=== PATIENT | male | born 1950 | race Hispanic/Latino ===

== ENCOUNTER → 2017-08-26 | Outpatient (CLI) | payer MEDICARE | END | disposition home or self-care (01) | LOC: RAH 13:12 | PROVIDERS: ATTEND Family Medicine | DX: S83.91XA Sprain of unspecified site of right knee, initial encounter (principal); M25.461 Effusion, right knee; X58.XXXA Exposure to other specified factors, initial encounter; Y93.89 Activity, other specified; Y92.89 Other specified places as the place of occurrence of the external cause; Y99.8 Other external cause status | CPT/HCPCS: 73721 ==

== ENCOUNTER 2019-10-03 14:31 | Inpatient (IN) | payer MEDICARE ==
[~2019-10-03] VITALS: Ht 157.5 cm; Wt 79.3 kg
[2019-10-03] MEDS ORDERED: ACETAMINOPHEN 325 MG TAB ONE (14:38)
[2019-10-03 15:16] LABS: BASOPHILS % (AUTO) 0.1 % (0.0-5.0); LYMPHOCYTES % (AUTO) 6.4 % (21.0-51.0); MEAN CORPUSCULAR HEMOGLOBIN 29.7 pg (27.0-33.0); MEAN CORPUSCULAR HGB CONC 33.8 g/dL (32.0-36.0); MEAN CORPUSCULAR VOLUME 87.9 fL (79-99); MONOCYTES % (AUTO) 8.6 % (3.0-13.0); NEUTROPHILS % (AUTO) 84.4 % (40.0-77.0); PLATELET COUNT (AUTO) 106 K/uL (130-400); RED CELL DISTRIBUTION WIDTH 14.6 % (11.0-15.5); WHITE BLOOD COUNT (AUTO) 21.2 K/uL (4.8-10.8)
[2019-10-03 15:43] LABS: ALBUMIN 3.2 g/dL (3.5-5.0); BILIRUBIN,TOTAL 2.2 mg/dL (0.2-1.0); CREATININE 4.2 mg/dL (0.5-1.5); TOTAL PROTEIN, SERUM 6.9 g/dL (6.0-8.3)
[2019-10-03] MEDS ORDERED: ONDANSETRON HCL 4 MG/2 ML VIAL ONE (15:53)
[2019-10-03] MEDS ORDERED: ZOSYN 3.375GM+NS 50ML 50 ML IV ONE (16:16)
[2019-10-03] MEDS ORDERED: MORPHINE SULFATE 4 MG/1ML SYG ONE (17:55)
[2019-10-03] MEDS ORDERED: SODIUM CHLORIDE 0.9% 1000ML 1,000 ML IV SCH (19:11)
[2019-10-03] MEDS ORDERED: MEPERIDINE-PF 25 MG/ML SYG IV PRN (19:15)
[2019-10-03] MEDS ORDERED: ACETAMINOPHEN 325 MG TAB PO PRN ×2 (19:15)
[2019-10-03] MEDS ORDERED: MEPERIDINE-PF 50 MG/ML SYG IVP PRN (19:30)
[2019-10-03] MEDS ORDERED: MEPERIDINE-PF 25 MG/ML SYG IVP PRN (19:45)
[2019-10-03] MEDS ORDERED: PHARMACY COMMUNICATION MISC SCH (20:00)
[2019-10-03] MEDS ORDERED: METRONIDAZOLE 500 MG TABLET PO SCH (21:00)
[2019-10-03] MEDS: INSULIN HUMULIN R 100 UNIT/ML 3ML SQ SCH (21:00)
[2019-10-03] MEDS ORDERED: FAMOTIDINE/PF 20 MG/2 ML VIAL IV ONE (21:39)
[2019-10-03 22:52] VITALS: BP 159/79
[2019-10-04] MEDS: LACTATED RINGERS 1000ML 1,000 ML IV SCH ×4 (00:41→19:42)
[2019-10-04 04:01] LABS: BASOPHILS % (AUTO) 0.2 % (0.0-5.0); HEMATOCRIT 24.7 % (42-54); LYMPHOCYTES % (AUTO) 4.9 % (21.0-51.0); MEAN CORPUSCULAR HEMOGLOBIN 29.3 pg (27.0-33.0); MEAN CORPUSCULAR HGB CONC 33.2 g/dL (32.0-36.0); MEAN CORPUSCULAR VOLUME 88.2 fL (79-99); MONOCYTES % (AUTO) 9.4 % (3.0-13.0); NEUTROPHILS % (AUTO) 84.7 % (40.0-77.0); PLATELET COUNT (AUTO) 74 K/uL (130-400); RED CELL DISTRIBUTION WIDTH 14.4 % (11.0-15.5); WHITE BLOOD COUNT (AUTO) 19.4 K/uL (4.8-10.8)
[2019-10-04 04:17] LABS: ALBUMIN 2.4 g/dL (3.5-5.0); BILIRUBIN,TOTAL 2.8 mg/dL (0.2-1.0); CREATININE 5.1 mg/dL (0.5-1.5); POTASSIUM 4.5 mmol/L (3.5-5.1); TOTAL PROTEIN, SERUM 5.4 g/dL (6.0-8.3)
[2019-10-04] MEDS: ZOSYN 3.375GM+NS 50ML 50 ML IV SCH ×2 (04:22→15:27)
[2019-10-04 04:40] VITALS: BP 152/66
[2019-10-04] MEDS: INSULIN HUMULIN R 100 UNIT/ML 3ML SQ SCH ×4 (06:14→21:00)
[2019-10-04 07:54] VITALS: BP 151/66
[2019-10-04] MEDS: FAMOTIDINE/PF 20 MG/2 ML VIAL IV SCH (08:36)
--- NOTE | 2019-10-04 10:00 | NUR ---
DR. ISLAS IS MAKING HIS ROUNDS. PENDING MRCP RESULTS. MD ORDERED FOR CLEAR LIQUID DIET TO BE STARTED. IF POSITIVE MRCP, MD PLANS FOR SURGERY ON SATURDAY.
--- NOTE | 2019-10-04 10:55 | NUR ---
cm note spoke with patient and states resides at home with spouse, uses cane for ambulation and has provider to assist with adls, has provider 3hrs daily, and she transports to md as needed. dc [place]. states no dc needs. Addendum: 10/04/19 at 1101 by MARTHA GRAMAJO CM Amended: Links added.
--- NOTE | 2019-10-04 11:00 | NUR ---
DR. OCAMPO IS IN TO SEE PATIENT. CONTINUE IVF. D/C DEMEROL.
[2019-10-04 11:25] VITALS: BP 153/69
[2019-10-04 11:42] LABS: APPEARANCE,URINE TURBID (CLEAR); BILIRUBIN,URINE SMALL (NEGATIVE); COLOR,URINE YELLOW (YELLOW); GLUCOSE, URINE (UA) 250 mg/dL (NEGATIVE); KETONES,URINE NEGATIVE (NEGATIVE); LEUKOCYTE ESTERASE ,URINE SMALL (NEGATIVE); NITRATE,URINE NEGATIVE (NEGATIVE); OCCULT BLOOD,URINE MODERATE (NEGATIVE); PROTEIN,URINE >=300 mg/dL (NEGATIVE)
[2019-10-04 11:43] LABS: RBC,URINE 0-1 /HPF (0-1)
[2019-10-04 11:44] LABS: AMORPHOUS SEDIMENT,UR Many /LPF (None Seen); BACTERIA,URINE Few /HPF (None Seen); SQUAMOUS EPITHELIAL CELL,UR Few /HPF (0-2)
--- NOTE | 2019-10-04 17:06 | NUR ---
PATIENT IS PENDING HIDA SCAN WHICH WILL NOT GET DONE UNTIL TOMORROW. HE WILL BE KEPT NPO AFTER MIDNIGHT.
[2019-10-04 20:00] VITALS: BP 165/72
[2019-10-04] MEDS: HYDRALAZINE HCL 20 MG/ML VIAL IV PRN (21:00)
[2019-10-04 21:45] VITALS: BP 142/57
[2019-10-04 23:53] VITALS: BP 147/71
[2019-10-05] MEDS: ZOSYN 3.375GM+NS 50ML 50 ML IV SCH ×2 (03:29→15:54)
[2019-10-05 03:57] VITALS: BP 143/61
[2019-10-05] MEDS: LACTATED RINGERS 1000ML 1,000 ML IV SCH (04:38)
[2019-10-05] MEDS: INSULIN HUMULIN R 100 UNIT/ML 3ML SQ SCH ×4 (05:15→20:10)
[2019-10-05 06:07] LABS: HEMATOCRIT 25.6 % (42-54); MEAN CORPUSCULAR HEMOGLOBIN 28.7 pg (27.0-33.0); MEAN CORPUSCULAR HGB CONC 32.8 g/dL (32.0-36.0); MEAN CORPUSCULAR VOLUME 87.4 fL (79-99); PLATELET COUNT (AUTO) 90 K/uL (130-400); RED BLOOD CELL COUNT(AUTO) 2.93 MIL/uL (4.50-6.20); RED CELL DISTRIBUTION WIDTH 14.7 % (11.0-15.5); WHITE BLOOD COUNT (AUTO) 10.1 K/uL (4.8-10.8)
[2019-10-05 06:13] LABS: MAGNESIUM 1.8 mg/dL (1.80-2.40); PHOSPHORUS 3.9 mg/dL (2.5-4.9); URIC ACID 7.6 mg/dL (2.6-7.2)
[2019-10-05 06:33] LABS: % IRON SATURATION 16.7 % (30-44)
[2019-10-05 07:23] LABS: BASOPHILS % (MANUAL) 1 % (0-2); EOSINOPHILS % (MANUAL) 2 % (1-6); LYMPHOCYTES % (MANUAL) 13 % (22-44); MAN.DIFF COMMENT-IMPRESSION MANUAL DIFFERENTIAL; MONOCYTES % (MANUAL) 6 % (2-9); PLATELET MORPHOLOGY COMMENT DECREASED; SEGMENTED NEUTROPHILS % 78 % (40-70)
[2019-10-05 07:33] VITALS: BP 139/71
[2019-10-05] MEDS: FAMOTIDINE/PF 20 MG/2 ML VIAL IV SCH (09:13)
[2019-10-05 09:39] LABS: APPEARANCE,URINE Clear (CLEAR); BILIRUBIN,URINE Small (NEGATIVE); COLOR,URINE Dark Yellow (YELLOW); GLUCOSE, URINE (UA) TRACE mg/dL (NEGATIVE); KETONES,URINE Negative (NEGATIVE); LEUKOCYTE ESTERASE ,URINE Negative (NEGATIVE); NITRATE,URINE Negative (NEGATIVE); OCCULT BLOOD,URINE Small (NEGATIVE); PROTEIN,URINE 300 mg/dL (NEGATIVE)
[2019-10-05 09:54] LABS: BACTERIA,URINE Rare /HPF (None Seen); SQUAMOUS EPITHELIAL CELL,UR Rare /HPF (0-2)
[2019-10-05 11:17] VITALS: BP_SYST 157; BP_SYST 159; BP_DIAS 62; BP_DIAS 67
[2019-10-05 15:37] VITALS: BP 158/67
[2019-10-05 20:14] VITALS: BP 156/69
[2019-10-05 23:38] VITALS: BP 165/74
[2019-10-06 03:30] VITALS: BP 140/64
[2019-10-06] MEDS: ZOSYN 3.375GM+NS 50ML 50 ML IV SCH ×2 (04:17→16:50)
[2019-10-06] MEDS: INSULIN HUMULIN R 100 UNIT/ML 3ML SQ SCH ×4 (05:28→20:59)
[2019-10-06 06:13] LABS: BASOPHILS % (AUTO) 0.5 % (0.0-5.0); EOSINOPHILS % (AUTO) 6.9 % (0.0-8.0); HEMATOCRIT 23.7 % (42-54); LYMPHOCYTES % (AUTO) 17.8 % (21.0-51.0); MEAN CORPUSCULAR HEMOGLOBIN 28.6 pg (27.0-33.0); MEAN CORPUSCULAR HGB CONC 32.9 g/dL (32.0-36.0); MEAN CORPUSCULAR VOLUME 86.8 fL (79-99); MONOCYTES % (AUTO) 10.3 % (3.0-13.0); NEUTROPHILS % (AUTO) 63.7 % (40.0-77.0); PLATELET COUNT (AUTO) 103 K/uL (130-400); RED BLOOD CELL COUNT(AUTO) 2.73 MIL/uL (4.50-6.20); RED CELL DISTRIBUTION WIDTH 14.6 % (11.0-15.5); WHITE BLOOD COUNT (AUTO) 7.9 K/uL (4.8-10.8)
[2019-10-06 06:26] LABS: CREATININE 5.1 mg/dL (0.5-1.5); POTASSIUM 4.1 mmol/L (3.5-5.1)
[2019-10-06 07:15] VITALS: BP 150/68
[2019-10-06 08:13] LABS: HEPATITIS A ANTIBODY IGM Negative (Negative); HEPATITIS B CORE IGM Negative (Negative); HEPATITIS Bs ANTIGEN SCREEN P Negative (Negative)
[2019-10-06 09:34] LABS: AMYLASE 52 U/L (25-115); LIPASE 236 U/L (114-286)
[2019-10-06] MEDS: FAMOTIDINE/PF 20 MG/2 ML VIAL IV SCH (10:22)
[2019-10-06 10:57] VITALS: BP_SYST 170; BP_SYST 178; BP_DIAS 69; BP_DIAS 84
[2019-10-06] MEDS: HYDRALAZINE HCL 20 MG/ML VIAL IV PRN (11:45)
--- NOTE | 2019-10-06 11:50 | NUR ---
PLAN OF CARE DISCUSSION AT BEDSIDE WITH DORA QUINTERO AND WITH TESS DYSON NOTES OF DR. ISLAS REVIEWED FROM 10/03, POSS [facility] ON THURSDAY 10/05? NO FURTHER ORDERS OR PN'S , TEXT TO TUNDE REED, ASKING RE PLAN OF CARE, TUNDE OFF THIS WEEK, KIEL RN TO CONTACT DR. ISLAS TO ASK WHEN ALP CHOOE WILL BE? WBC NORMALIZED, NO ABD PAIN, NO FEVER- [facility] OR DC? KIEL TO CONFIRM Addendum: 10/06/19 at 1302 by SRIRAM PÉREZ RN CM Amended: Links added.
--- NOTE | 2019-10-06 14:00 | NUR ---
DR. ISLAS HERE AND SPOKE WITH PT . THAT HE WAS GOING TO TAKE HIM TO SURGERY TOMMORROW. REVIEW . PLAN OF CARE, QUESTION REVIEW
[2019-10-06 15:45] VITALS: BP 137/63
[2019-10-06] MEDS: LACTATED RINGERS 1000ML 1,000 ML IV SCH (16:50)
[2019-10-06 19:00] VITALS: BP 169/66
[2019-10-06 23:00] VITALS: BP 158/69
[2019-10-07] VITALS (22 sets, daily range): BP systolic 122–172; BP diastolic 51–69
[2019-10-07] MEDS: HYDRALAZINE HCL 20 MG/ML VIAL IV PRN (04:38)
[2019-10-07] MEDS: LACTATED RINGERS 1000ML 1,000 ML IV SCH ×3 (04:38→20:19)
[2019-10-07] MEDS: ZOSYN 3.375GM+NS 50ML 50 ML IV SCH ×2 (04:38→17:07)
[2019-10-07] MEDS: INSULIN HUMULIN R 100 UNIT/ML 3ML SQ SCH ×4 (05:08→20:14)
[2019-10-07] MEDS: FAMOTIDINE/PF 20 MG/2 ML VIAL IV SCH (09:00)
[2019-10-07] MEDS ORDERED: SODIUM CHLORIDE 0.9% 1000ML 1,000 ML IV ONE (09:52)
--- NOTE | 2019-10-07 10:02 | NUR ---
POTENTIAL FOR INFECTION ENTIRE ABDOMEN CLIPPED BY KATALINA DE GUZMAN TECH
[2019-10-07] MEDS ORDERED: ROCURONIUM 10MG/1ML SYR 10 MG/ML ML ONE (10:15)
[2019-10-07] MEDS ORDERED: PROPOFOL 10 MG/ML 20ML VIAL IV ONE (10:15)
[2019-10-07] MEDS ORDERED: MIDAZOLAM HCL 1 MG/ML 2ML VIAL ONE (10:15)
[2019-10-07] MEDS ORDERED: LIDOCAINE PF 2% 5ML ABBOJECT ONE (10:15)
[2019-10-07] MEDS ORDERED: DEXAMETHASONE SOD PHOSPHATE 10MG/ML 1ML VIAL ONE (10:16)
[2019-10-07] MEDS ORDERED: FENTANYL CITRATE PF 50 MCG/1 ML 2ML VIAL ONE ×2 (10:16→11:27)
[2019-10-07] MEDS ORDERED: GLYCOPYRROLATE 1 MG/5 ML SYRINGE ONE (10:16)
[2019-10-07] MEDS ORDERED: ONDANSETRON HCL 4 MG/2 ML VIAL ONE (10:18)
[2019-10-07] MEDS ORDERED: NEOSTIGMINE 5MG/5ML SYR IV ONE (10:18)
[2019-10-07] MEDS ORDERED: SUCCINYLCHOLINE 200MG/10ML SYR ONE (10:35)
[2019-10-07] MEDS ORDERED: BUPIVACAINE/PF 0.5% 30ML VIAL ONE (10:59)
[2019-10-07] MEDS ORDERED: PHARMACY COMMUNICATION MISC SCH (13:45)
[2019-10-07] MEDS ORDERED: IRON SUCROSE COMPLEX 300 MG in SODIUM CHLORIDE 0.9% 100 ML IVP SCH (13:45)
[2019-10-07] MEDS ORDERED: COMPOUND IV MISC 1 EACH IVSOLN MISC PRN (13:45)
[2019-10-07] MEDS: TRAMADOL HCL 50 MG TABLET PO SCH ×2 (17:09→20:19)
--- NOTE | 2019-10-07 18:00 | NUR ---
took over care of patient; pt noted to have a moderate amount of bloody drainage on gown and pad under patient; the patient has an over full gerard drain; i emptied 100cc from drain of serosanginous fluid and changed sheets and reinforeced dressing
[2019-10-08] MEDS: TRAMADOL HCL 50 MG TABLET PO SCH ×4 (02:04→20:17)
[2019-10-08] MEDS: ZOSYN 3.375GM+NS 50ML 50 ML IV SCH ×2 (02:46→17:01)
[2019-10-08 04:00] VITALS: BP 146/64
[2019-10-08 04:22] LABS: BASOPHILS % (AUTO) 0.1 % (0.0-5.0); HEMATOCRIT 23.2 % (42-54); LYMPHOCYTES % (AUTO) 5.7 % (21.0-51.0); MEAN CORPUSCULAR HEMOGLOBIN 28.8 pg (27.0-33.0); MEAN CORPUSCULAR HGB CONC 31.9 g/dL (32.0-36.0); MEAN CORPUSCULAR VOLUME 90.3 fL (79-99); MONOCYTES % (AUTO) 4.6 % (3.0-13.0); PLATELET COUNT (AUTO) 116 K/uL (130-400); RED BLOOD CELL COUNT(AUTO) 2.57 MIL/uL (4.50-6.20); WHITE BLOOD COUNT (AUTO) 9.4 K/uL (4.8-10.8)
[2019-10-08 04:27] LABS: ALBUMIN 1.9 g/dL (3.5-5.0); BILIRUBIN,TOTAL 0.9 mg/dL (0.2-1.0); CREATININE 5.3 mg/dL (0.5-1.5); PHOSPHORUS 5.9 mg/dL (2.5-4.9); POTASSIUM 4.9 mmol/L (3.5-5.1); TOTAL PROTEIN, SERUM 5.2 g/dL (6.0-8.3)
[2019-10-08] MEDS: INSULIN HUMULIN R 100 UNIT/ML 3ML SQ SCH ×4 (05:50→20:25)
[2019-10-08 08:00] VITALS: BP 101/47
[2019-10-08] MEDS: FAMOTIDINE/PF 20 MG/2 ML VIAL IV SCH (09:37)
--- NOTE | 2019-10-08 10:05 | NUR ---
PT HAD NOT VOIDED SINCE RETURNING POST OP, THE PM NURSE DID BLADDER SCAN AT 0700 AND IT SHOWED 500CC; SHE ATTEMPTED TO PERFORM IN AND OUT CATH BUT WAS NOT ABLE TO INTRODUCE THE CATHETER, THE CATHETOR WAS TO LARGE FOR PT'S MEATUS; I ATTEMPTED TO HAVE HIM STAND AND VOID AND HE WAS STILL UNABLE; I GOT A SMALLER CATHETOR TUBE FROM SUP[employer]Y AND WAS ABLE TO DO IN AND OUT CATH AND TOOK OUTN 550CC OF [place] COLORED URINE; ASEPTIC TECHNIQUE USED, PT CLEANED WITH BETADINE; IT WAS DIFFICULT TO INSERT THE SMALLER CATHETOR BUT IT DID GRADUALLY GO DOWN; PT GARRY. PROC. WELL; I EXPLAINED TO PT THAT HE IS DUE TO VOID AGAIN AND ENCOURAGED HIM TO DRINK MORE FLUIDS; HE STATED UNDERSTANDING.
--- NOTE | 2019-10-08 10:58 | NUR ---
CHART REVIEWED, CASE DISCUSSED WITH PRIMARY RN JERRY RICHARDSON YESTERDAY, DIET NOT ADVANCED YET BECAUSE OF NAUSEA THIS MORNING. CM WILL FOLLOW. NOT EXPECTING DISCHARGE TODAY Addendum: 10/08/19 at 1103 by SRIRAM PÉREZ RN CM Amended: Links added.
[2019-10-08 12:00] VITALS: BP 136/57
[2019-10-08] MEDS ORDERED: EPOETIN ALFA 10,000 UNIT/ML VIAL SQ SCH (14:45)
[2019-10-08] MEDS ORDERED: IRON SUCROSE COMPLEX 300 MG in SODIUM CHLORIDE 0.9% 50 ML IV SCH (15:00)
--- NOTE | 2019-10-08 15:36 | NUR ---
I SPOKE TO DR ISLAS ON THE PHONE ABOUT ADVANCING PT'S DIET AND HE STATED THAT HE SHOULD STAY ON CLEAR LIQUIDS TODAY AND POSSIBLY ADVANCE TOMORROW.
[2019-10-08 16:00] VITALS: BP 160/68
[2019-10-08 19:55] VITALS: BP 133/55
[2019-10-08] MEDS: SODIUM BICARBONATE 650 MG TAB PO SCH (20:17)
[2019-10-08 23:58] VITALS: BP 141/75
[2019-10-09] MEDS: ZOSYN 3.375GM+NS 50ML 50 ML IV SCH ×2 (02:39→15:19)
[2019-10-09] MEDS: TRAMADOL HCL 50 MG TABLET PO SCH ×4 (02:39→20:31)
[2019-10-09 03:55] VITALS: BP 140/56
--- NOTE | 2019-10-09 04:27 | NUR ---
spoke with glen ocampo about patient's urinary retention and bladder scan of 310. i have taken the patient to the restroom 3 times tonight and he has not been able to void. orders from ms. ocampo are to use hot and cold compress and to keep trying. if unable to void, insert a frey catheter.
[2019-10-09 05:43] LABS: HEMATOCRIT 23.1 % (42-54); MEAN CORPUSCULAR HEMOGLOBIN 29.5 pg (27.0-33.0); MEAN CORPUSCULAR HGB CONC 32.5 g/dL (32.0-36.0); MEAN CORPUSCULAR VOLUME 90.9 fL (79-99); PLATELET COUNT (AUTO) 135 K/uL (130-400); RED BLOOD CELL COUNT(AUTO) 2.54 MIL/uL (4.50-6.20); RED CELL DISTRIBUTION WIDTH 15.1 % (11.0-15.5); WHITE BLOOD COUNT (AUTO) 17.1 K/uL (4.8-10.8)
[2019-10-09] MEDS: INSULIN HUMULIN R 100 UNIT/ML 3ML SQ SCH ×4 (05:52→20:26)
--- NOTE | 2019-10-09 05:57 | NUR ---
tried inserting a 16 luxembourgish frey catheter on the patient. had difficulty inserting the tip into the urethra. will try to use a kude catheter instead.
[2019-10-09 06:07] LABS: CREATININE 6.2 mg/dL (0.5-1.5); POTASSIUM 4.7 mmol/L (3.5-5.1)
--- NOTE | 2019-10-09 08:00 | NUR ---
PATIENT HAS NOT VOIDED ALL NIGHT. MADE PATIENT AWARE ABRAHAM CATHETER NEEDS TO BE INSERTED PER MD ORDERS. PATIENT STATED HE WANTS TO EAT BREAKFAST AND DRINK FLUIDS TO SEE IF THIS WILL HELP HIM VOID
[2019-10-09 08:11] VITALS: BP 135/52
[2019-10-09] MEDS: FAMOTIDINE/PF 20 MG/2 ML VIAL IV SCH (10:06)
[2019-10-09] MEDS: SODIUM BICARBONATE 650 MG TAB PO SCH ×2 (10:06→20:26)
--- NOTE | 2019-10-09 10:15 | NUR ---
PATIENT HAS STILL NOT VOIDED. BLADDER SCAN SHOWS 372. ATTEMPTED TO INSERT 16F COUDE AND 14F COUDE, UNSUCESSFUL. RAEANN SETH MEDICAL CODING INSTRUCTOR MADE AWARE. STATED SHE WILL SPEAK TO DR. ALEJANDRO AND DISCUSS POSSIBLE UROLOGY CONSULT
[2019-10-09 11:57] VITALS: BP 154/76
--- NOTE | 2019-10-09 12:00 | NUR ---
PATIENT ASSISTED TO SHOWER, WHILE IN SHOWER PATIENT VOIDED. BLADDER SCAN DONE POST VOID AND BLADDER IS EMPTY. WILL CONTINUE TO MONITOR OUTPUT
[2019-10-09] MEDS: CEFTRIAXONE SODIUM 1 GM IVP SCH ×2 (13:26→23:31)
[2019-10-09] MEDS: SODIUM CHLORIDE 0.9% 1000ML 1,000 ML IV SCH (16:46)
[2019-10-09 16:47] VITALS: BP 147/68
[2019-10-09 19:09] VITALS: BP 145/67
[2019-10-09 23:24] VITALS: BP 140/62
[2019-10-10] MEDS: TRAMADOL HCL 50 MG TABLET PO SCH ×4 (00:05→21:00)
--- NOTE | 2019-10-10 02:53 | NUR ---
PATIENT UPDATE Report received catherine Whitney RN at 0130 to assume care of pt. Pt alert and awake but confused. Noted randomly getting out of bed not knowing why he got up. Talked about going home, reoriented about his surgery, to place and time and still looking lost. Bed switched to one with a bed alarm. No complaints of pain, received with ongoing hydration with NS at 100 cc's per hour as per order. Reported that pt able to void without any problems now. Afebrile, vital signs stable,abdomen soft and non tender. Reoriented every hour, monitored closely, pt a fall risk.
[2019-10-10] MEDS: SODIUM CHLORIDE 0.9% 1000ML 1,000 ML IV SCH ×3 (03:53→21:45)
[2019-10-10 03:56] VITALS: BP 159/69
[2019-10-10] MEDS: ZOSYN 3.375GM+NS 50ML 50 ML IV SCH ×2 (04:05→16:09)
[2019-10-10 04:52] LABS: BASOPHILS % (AUTO) 0.3 % (0.0-5.0); EOSINOPHILS % (AUTO) 3.5 % (0.0-8.0); HEMATOCRIT 21.8 % (42-54); LYMPHOCYTES % (AUTO) 11.6 % (21.0-51.0); MEAN CORPUSCULAR HEMOGLOBIN 28.5 pg (27.0-33.0); MEAN CORPUSCULAR HGB CONC 31.7 g/dL (32.0-36.0); MEAN CORPUSCULAR VOLUME 90.1 fL (79-99); MONOCYTES % (AUTO) 10.7 % (3.0-13.0); NEUTROPHILS % (AUTO) 68.7 % (40.0-77.0); NUCLEATED RED BLOOD CELLS 0.1 % (0.0-0.19); PLATELET COUNT (AUTO) 134 K/uL (130-400); RED BLOOD CELL COUNT(AUTO) 2.42 MIL/uL (4.50-6.20); RED CELL DISTRIBUTION WIDTH 14.7 % (11.0-15.5); WHITE BLOOD COUNT (AUTO) 14.5 K/uL (4.8-10.8)
[2019-10-10] MEDS ORDERED: SODIUM CHLORIDE 0.9% 500ML 500 ML IV ONE (05:29)
[2019-10-10 05:32] LABS: ALBUMIN 2.3 g/dL (3.5-5.0); BILIRUBIN,TOTAL 0.6 mg/dL (0.2-1.0); CREATININE 7.2 mg/dL (0.5-1.5); MAGNESIUM 1.8 mg/dL (1.80-2.40); PHOSPHORUS 6.3 mg/dL (2.5-4.9); POTASSIUM 4.1 mmol/L (3.5-5.1); TOTAL PROTEIN, SERUM 5.6 g/dL (6.0-8.3)
[2019-10-10] MEDS: INSULIN HUMULIN R 100 UNIT/ML 3ML SQ SCH ×4 (05:59→21:36)
--- NOTE | 2019-10-10 07:48 | NUR ---
BLOOD TRANSFUSION H/H this am at 6.9 and 21.8, Hospitalist called with orders to transfuse1 unit of prbc over 4 hrs. Blood transfusion was started, verified with Wu PULIDO,monitored pt closely mary the 1st 15 minutes of blood transfusion, no untoward reactions noted. Main ivf of NS infusing at 100 cc/hr placed on hold while ptis receiving blood transfusion. Pt remains confused , gets out of bed when he starts getting restless. Patient moved to rm 316 so he can be monitored alongside the pt in 315 who's got a 1:1 sitter. Report given to Josephine PULIDO who will assume care of the pt this am.
[2019-10-10 08:00] VITALS: BP 133/67
--- NOTE | 2019-10-10 10:00 | NUR ---
Patient awake, alert, answered questions adequately, Sammarinese speaking only. Denying pain. Bowel sounds very hypoactive to all quadrants. Dressing change performed to MARQUITA site due to draining serous-sanguineous drainage. The saline lock to left upper was found completely out of the vein, went ahead and removed it and site care performed. Patient is on a 1:1 observation due to according to previous nurse pt was getting up to use the urinal without alerting staff.
[2019-10-10] MEDS: SODIUM BICARBONATE 650 MG TAB PO SCH ×2 (10:05→21:35)
[2019-10-10] MEDS: FAMOTIDINE/PF 20 MG/2 ML VIAL IV SCH (10:05)
[2019-10-10 11:00] VITALS: BP 149/60
[2019-10-10] MEDS: CEFTRIAXONE SODIUM 1 GM IVP SCH ×2 (12:51→23:28)
[2019-10-10 15:06] LABS: HEMATOCRIT 23.2 % (42-54)
[2019-10-10 16:00] VITALS: BP 153/63
[2019-10-10 20:00] VITALS: BP 165/77
[2019-10-10] MEDS ORDERED: IRON SUCROSE COMPLEX 100 MG in SODIUM CHLORIDE 0.9% 50 ML IV SCH (21:00)
[2019-10-10 23:23] VITALS: BP 182/87
[2019-10-10] MEDS: HYDRALAZINE HCL 20 MG/ML VIAL IV PRN (23:29)
[2019-10-11] MEDS: TRAMADOL HCL 50 MG TABLET PO SCH ×3 (03:00→15:00)
[2019-10-11] MEDS: ZOSYN 3.375GM+NS 50ML 50 ML IV SCH ×2 (03:00→16:22)
[2019-10-11 04:00] VITALS: BP 156/69
[2019-10-11] MEDS: INSULIN HUMULIN R 100 UNIT/ML 3ML SQ SCH ×4 (05:18→21:00)
[2019-10-11 05:35] LABS: HEMATOCRIT 22.5 % (42-54); MEAN CORPUSCULAR HEMOGLOBIN 29.2 pg (27.0-33.0); MEAN CORPUSCULAR HGB CONC 33.3 g/dL (32.0-36.0); MEAN CORPUSCULAR VOLUME 87.5 fL (79-99); NUCLEATED RED BLOOD CELLS 0.6 % (0.0-0.19); PLATELET COUNT (AUTO) 130 K/uL (130-400); RED BLOOD CELL COUNT(AUTO) 2.57 MIL/uL (4.50-6.20); RED CELL DISTRIBUTION WIDTH 15.2 % (11.0-15.5); WHITE BLOOD COUNT (AUTO) 11.7 K/uL (4.8-10.8)
[2019-10-11 05:46] LABS: BAND NEUTROPHILS % (MANUAL) 2 % (0-2); EOSINOPHILS % (MANUAL) 7 % (1-6); LYMPHOCYTES % (MANUAL) 9 % (22-44); MAN.DIFF COMMENT-IMPRESSION MANUAL DIFFERENTIAL; MONOCYTES % (MANUAL) 1 % (2-9); PLATELET MORPHOLOGY COMMENT ADEQUATE; SEGMENTED NEUTROPHILS % 81 % (40-70)
[2019-10-11 05:48] LABS: INR 1.07 (0.85-1.15); PARTIAL THROMBOPLASTIN TIME 35.6 SEC (26.3-35.5); PROTHROMBIN TIME 11.5 SEC (9.6-11.6)
[2019-10-11 05:52] LABS: CREATININE 7.2 mg/dL (0.5-1.5); MAGNESIUM 1.8 mg/dL (1.80-2.40); PHOSPHORUS 5.9 mg/dL (2.5-4.9); POTASSIUM 3.8 mmol/L (3.5-5.1)
[2019-10-11 07:58] VITALS: BP 160/64
[2019-10-11] MEDS: SODIUM CHLORIDE 0.9% 1000ML 1,000 ML IV SCH (08:00)
[2019-10-11] MEDS: FAMOTIDINE/PF 20 MG/2 ML VIAL IV SCH (08:36)
[2019-10-11] MEDS: SODIUM BICARBONATE 650 MG TAB PO SCH ×2 (08:36→21:57)
[2019-10-11] MEDS: CEFTRIAXONE SODIUM 1 GM IVP SCH ×2 (11:52→22:52)
[2019-10-11 12:00] VITALS: BP 167/84
--- NOTE | 2019-10-11 12:30 | NUR ---
UP AMBULATED AROUND NURSES STATION WITH STAFF AND TOLERATE WELL. ASSIT BAck to BED,
--- NOTE | 2019-10-11 13:20 | NUR ---
DR. DE ANDA HERE FOR DR. ISLAS, REVIEW PT. CARE. AND ASSESS HIS J.P. DRAIN. TO HIS RIGHT LATERAL AREA OF ABD, CONT WITH CARE , AND DR.ORDERS GIVEN.
[2019-10-11 16:22] VITALS: BP 166/75
[2019-10-11] MEDS ORDERED: TRAMADOL HCL 50 MG TABLET PO PRN (16:45)
[2019-10-11 16:58] VITALS: BP 166/75
[2019-10-11] MEDS: CALCIUM ACETATE 667 MG CAPSULE PO SCH (18:02)
[2019-10-11 19:12] VITALS: BP 172/68
[2019-10-11] MEDS: HYDRALAZINE HCL 20 MG/ML VIAL IV PRN (21:58)
[2019-10-11] MEDS: ONDANSETRON HCL 4 MG/2 ML VIAL IV PRN (23:27)
[2019-10-12] VITALS (7 sets, daily range): BP systolic 109–166; BP diastolic 58–73
[2019-10-12] MEDS: ZOSYN 3.375GM+NS 50ML 50 ML IV SCH ×2 (03:04→16:03)
[2019-10-12 05:23] LABS: BASOPHILS % (AUTO) 0.5 % (0.0-5.0); EOSINOPHILS % (AUTO) 5.8 % (0.0-8.0); MEAN CORPUSCULAR HEMOGLOBIN 28.4 pg (27.0-33.0); MEAN CORPUSCULAR HGB CONC 32.6 g/dL (32.0-36.0); MEAN CORPUSCULAR VOLUME 87.1 fL (79-99); MONOCYTES % (AUTO) 9.6 % (3.0-13.0); NEUTROPHILS % (AUTO) 66.7 % (40.0-77.0); NUCLEATED RED BLOOD CELLS 0.7 % (0.0-0.19); PLATELET COUNT (AUTO) 155 K/uL (130-400); RED BLOOD CELL COUNT(AUTO) 2.64 MIL/uL (4.50-6.20); RED CELL DISTRIBUTION WIDTH 15.4 % (11.0-15.5); WHITE BLOOD COUNT (AUTO) 9.4 K/uL (4.8-10.8)
[2019-10-12 05:34] LABS: CREATININE 6.9 mg/dL (0.5-1.5); PHOSPHORUS 5.7 mg/dL (2.5-4.9)
[2019-10-12] MEDS: INSULIN HUMULIN R 100 UNIT/ML 3ML SQ SCH ×4 (05:57→21:00)
[2019-10-12] MEDS: CALCIUM ACETATE 667 MG CAPSULE PO SCH ×3 (08:32→17:00)
[2019-10-12] MEDS: AMLODIPINE BESYLATE 2.5 MG TAB PO SCH (08:32)
[2019-10-12] MEDS: SODIUM BICARBONATE 650 MG TAB PO SCH ×2 (08:32→21:02)
[2019-10-12] MEDS: FAMOTIDINE/PF 20 MG/2 ML VIAL IV SCH (08:32)
[2019-10-12] MEDS ORDERED: EPOETIN ALFA 10,000 UNIT/ML VIAL SQ SCH (09:00)
[2019-10-12] MEDS: ONDANSETRON HCL 4 MG/2 ML VIAL IV PRN ×2 (10:31→19:25)
--- NOTE | 2019-10-12 10:31 | NUR ---
AMBULATE ACTITIVY TODAY X 2, , A SSIT BACK TO CHAIR, HAVING NAUSEA . GAVE HIM SOME ZORFAN 4 MG IV FOR HIS CARE DR PAUL HERE AND AWARE OF PT .ACTITIVY ,WITH NEW ORDERS TO FOLLOW ,BACK ON HIS CL LIQ DIET FOR NOW AND A ORDER FOR A ABD X-RAY. REIVEW FALL RISK AND CALL LIGHT IN REach, pt is a ble to focus with verbal commands
[2019-10-12 10:56] LABS: ALBUMIN 1.9 g/dL (3.5-5.0); BILIRUBIN,DIRECT 0.3 mg/dL (0.0-0.3); BILIRUBIN,TOTAL 0.5 mg/dL (0.2-1.0); TOTAL PROTEIN, SERUM 4.9 g/dL (6.0-8.3)
--- NOTE | 2019-10-12 15:00 | NUR ---
TUNDE [place]th[place] FOR DR. ISLAS HERE ,UPDATE OF PT. J.P. DRAIN STILL LEAKING AROUND RT SIDE OF ABD INSERTION SITE, WITH HIGH OUTPUT OF DRAINAGE ,LIGHT SANGROUS DRAINAGE NOTED . KEEP MILKING TECH,DONE, TO KEEP PATENCY TO J.P. BULB , ABD SOFT TO TOUCH , ACTIVE BOWEL SOUND, INCISION AREA TO MID ABD STAPLE DRY AND CLEAN WITH NO DRAINAGE OR REDNESS NOTED ,DRSG TO J.P. SITE CHANGED DUE TO SATURATION OF OUTPUT FROM OUTPPUT OF J.P. DRAIN ,WILL CONT TO MONITOR LABS, HGB . AND HCT.
[2019-10-12] MEDS: HYDROMORPHONE HCL 2 MG/ML VIAL IVP PRN ×2 (16:04→19:36)
[2019-10-13] MEDS: ONDANSETRON HCL 4 MG/2 ML VIAL IV PRN (03:51)
[2019-10-13] MEDS: ZOSYN 3.375GM+NS 50ML 50 ML IV SCH ×2 (03:52→15:53)
[2019-10-13 04:00] VITALS: BP 137/64
[2019-10-13 05:29] LABS: HEMATOCRIT 25.3 % (42-54); MEAN CORPUSCULAR HEMOGLOBIN 28.4 pg (27.0-33.0); MEAN CORPUSCULAR HGB CONC 31.2 g/dL (32.0-36.0); NUCLEATED RED BLOOD CELLS 0.4 % (0.0-0.19); PLATELET COUNT (AUTO) 216 K/uL (130-400); RED BLOOD CELL COUNT(AUTO) 2.78 MIL/uL (4.50-6.20); RED CELL DISTRIBUTION WIDTH 15.8 % (11.0-15.5); WHITE BLOOD COUNT (AUTO) 15.7 K/uL (4.8-10.8)
[2019-10-13 05:40] LABS: CREATININE 7.4 mg/dL (0.5-1.5); POTASSIUM 4.7 mmol/L (3.5-5.1)
[2019-10-13] MEDS: INSULIN HUMULIN R 100 UNIT/ML 3ML SQ SCH ×5 (06:47→21:41)
[2019-10-13 08:24] VITALS: BP 146/64
[2019-10-13] MEDS: AMLODIPINE BESYLATE 2.5 MG TAB PO SCH (08:46)
[2019-10-13] MEDS: FAMOTIDINE/PF 20 MG/2 ML VIAL IV SCH (08:46)
[2019-10-13] MEDS: CALCIUM ACETATE 667 MG CAPSULE PO SCH ×3 (08:46→15:53)
[2019-10-13] MEDS: SODIUM BICARBONATE 650 MG TAB PO SCH ×2 (08:46→21:34)
[2019-10-13 12:19] VITALS: BP 139/59
--- NOTE | 2019-10-13 12:45 | NUR ---
MARIAH SCREEN - LOS X 10 DAYS Pt admitted for Sepsis. Pt with Clear Liquid, Renal Non Dialysis diet order in place. Pt not tolerating solid foods and refusal of dialysis, per EMR. Renal labs: BUN 82, Cr 7.4, GFR 8. Recommend to continue Clear Liquid diet order, pending Dialysis when medically feasible. RD to continue to monitor and follow up with POC. Addendum: 10/13/19 at [address] RD Amended: Links added.
[2019-10-13 16:23] VITALS: BP 147/60
[2019-10-13] MEDS ORDERED: LACTULOSE 20 GM/30 ML UDCUP PO PRN (19:45)
[2019-10-13 20:54] VITALS: BP 168/77
[2019-10-13] MEDS ORDERED: LACTULOSE 20 GM/30 ML UDCUP PO SCH (21:00)
[2019-10-14] VITALS (7 sets, daily range): BP systolic 154–179; BP diastolic 61–74
[2019-10-14] MEDS: HYDRALAZINE HCL 20 MG/ML VIAL IV PRN (00:32)
[2019-10-14 05:25] LABS: BASOPHILS % (AUTO) 0.3 % (0.0-5.0); EOSINOPHILS % (AUTO) 4.6 % (0.0-8.0); LYMPHOCYTES % (AUTO) 9.8 % (21.0-51.0); MEAN CORPUSCULAR HEMOGLOBIN 29.2 pg (27.0-33.0); MEAN CORPUSCULAR HGB CONC 32.5 g/dL (32.0-36.0); MEAN CORPUSCULAR VOLUME 89.7 fL (79-99); NUCLEATED RED BLOOD CELLS 0.5 % (0.0-0.19); PLATELET COUNT (AUTO) 201 K/uL (130-400); RED BLOOD CELL COUNT(AUTO) 2.33 MIL/uL (4.50-6.20); RED CELL DISTRIBUTION WIDTH 16.1 % (11.0-15.5); WHITE BLOOD COUNT (AUTO) 12.8 K/uL (4.8-10.8)
[2019-10-14 05:29] LABS: HEMATOCRIT 20.9 % (42-54)
[2019-10-14 05:42] LABS: CREATININE 7.8 mg/dL (0.5-1.5); POTASSIUM 3.4 mmol/L (3.5-5.1)
--- NOTE | 2019-10-14 06:05 | NUR ---
0604: returned call within a few minutes of being paged, informed him of patient's hgb and hct down to 6.8/20.9 from 7.9/25.3. Let him know why patient in hospital, I let him know also that patient is having ARF problems and dialysis was discussed with him and his family yesterday but so far not scheduled for dialysis. Informed him also patient has a jpratt that is draining sanguinous drainage. Doctor asked if patient on an iron medication informed him he is on Procrit 10,000 monthly, orders to change it to every Saturday and Saturday till Hgb greater then 8. oxygen therapy technician. called and stated patient BUN trending down to 79 from 82 yesterday. Patient made aware of new orders.
[2019-10-14] MEDS: INSULIN HUMULIN R 100 UNIT/ML 3ML SQ SCH ×4 (07:30→21:56)
[2019-10-14] MEDS: FAMOTIDINE/PF 20 MG/2 ML VIAL IV SCH ×2 (08:33→09:00)
[2019-10-14] MEDS: AMLODIPINE BESYLATE 2.5 MG TAB PO SCH (08:33)
[2019-10-14] MEDS: CALCIUM ACETATE 667 MG CAPSULE PO SCH ×3 (08:33→17:26)
[2019-10-14] MEDS: SODIUM BICARBONATE 650 MG TAB PO SCH ×2 (08:33→21:47)
[2019-10-14] MEDS: EPOETIN ALFA 10,000 UNIT/ML VIAL SQ SCH (08:34)
[2019-10-14] MEDS ORDERED: FUROSEMIDE 10 MG/ML 4ML VIAL IV SCH (12:00)
--- NOTE | 2019-10-14 12:51 | NUR ---
DR PLEITEZ PAGED REGARDING CONSULT. SPOKE TO RASHEEDA. PENDING CB
--- NOTE | 2019-10-14 14:11 | NUR ---
Patient is receiving blood transfusion in PM.Will attempt to initiate PT Evaluation 10/15/2019. Addendum: 10/14/19 at 1412 by KAYLIN BANERJEE, PT PT Amended: Links added.
--- NOTE | 2019-10-14 15:16 | NUR ---
BLADDER SCAN 258CC RESIDUAL URINE ASSESSED POST VOID. PT VOIDED 400CC IN URINAL. PT HAS NO C/O BLADDER FULLNESS AT THIS TIME
--- NOTE | 2019-10-14 17:35 | NUR ---
LIZ/MARQUITA DRAIN LIZ REMOVED FROM ABDOMINAL INCISIONS AND STERI-STRIPS APPLIED. NO DRAINAGE/BLEEDING NOTED, NO REDNESS OR SWELLING NOTED. SUTURES REMOVED FROM MARQUITA DRAIN SITE. MARQUITA DRAIN REMOVED, PATIENT TOLERATED WELL. NO ACTIVE BLEEDING NOTED. COVERED MARQUITA DRAIN SITE WITH GAUZE AND TEGADERM TAPE.
[2019-10-14] MEDS: FAMOTIDINE 20MG TAB 20 MG TAB PO SCH (21:50)
[2019-10-15 04:00] VITALS: BP 148/60
[2019-10-15 05:14] LABS: HEMATOCRIT 23.6 % (42-54); MEAN CORPUSCULAR HEMOGLOBIN 29.2 pg (27.0-33.0); MEAN CORPUSCULAR HGB CONC 33.1 g/dL (32.0-36.0); MEAN CORPUSCULAR VOLUME 88.4 fL (79-99); NUCLEATED RED BLOOD CELLS 0.5 % (0.0-0.19); PLATELET COUNT (AUTO) 209 K/uL (130-400); RED BLOOD CELL COUNT(AUTO) 2.67 MIL/uL (4.50-6.20); RED CELL DISTRIBUTION WIDTH 16.1 % (11.0-15.5); WHITE BLOOD COUNT (AUTO) 12.2 K/uL (4.8-10.8)
[2019-10-15] MEDS: INSULIN HUMULIN R 100 UNIT/ML 3ML SQ SCH ×4 (05:29→21:00)
[2019-10-15 05:37] LABS: PHOSPHORUS 4.9 mg/dL (2.5-4.9); POTASSIUM 3.2 mmol/L (3.5-5.1)
[2019-10-15 05:46] LABS: BASOPHILS % (MANUAL) 1 % (0-2); EOSINOPHILS % (MANUAL) 9 % (1-6); LYMPHOCYTES % (MANUAL) 14 % (22-44); MAN.DIFF COMMENT-IMPRESSION MANUAL DIFFERENTIAL; MONOCYTES % (MANUAL) 7 % (2-9); SEGMENTED NEUTROPHILS % 69 % (40-70)
[2019-10-15 08:13] VITALS: BP 170/72
[2019-10-15] MEDS: AMLODIPINE BESYLATE 2.5 MG TAB PO SCH (09:00)
[2019-10-15] MEDS: FAMOTIDINE 20MG TAB 20 MG TAB PO SCH (09:00)
[2019-10-15] MEDS: CALCIUM ACETATE 667 MG CAPSULE PO SCH ×3 (09:00→16:50)
[2019-10-15] MEDS: SODIUM BICARBONATE 650 MG TAB PO SCH ×2 (09:00→21:46)
[2019-10-15 10:08] LABS: % IRON SATURATION 31.6 % (30-44)
[2019-10-15 11:29] VITALS: BP 144/70
[2019-10-15 16:57] VITALS: BP 177/71
[2019-10-15] MEDS ORDERED: POTASSIUM CHLORIDE 10 MEQ/TAB.SA PO SCH (18:00)
[2019-10-15] MEDS: HYDRALAZINE HCL 20 MG/ML VIAL IV PRN (18:37)
[2019-10-15] MEDS ORDERED: MAGNESIUM OXIDE 400 MG TABLET PO SCH (18:55)
[2019-10-15 20:00] VITALS: BP 142/56
[2019-10-15 23:56] VITALS: BP 154/60
[2019-10-16 04:00] VITALS: BP 150/62
[2019-10-16] MEDS: INSULIN HUMULIN R 100 UNIT/ML 3ML SQ SCH (05:33)
[2019-10-16 05:54] LABS: BASOPHILS % (AUTO) 0.5 % (0.0-5.0); EOSINOPHILS % (AUTO) 5.7 % (0.0-8.0); HEMATOCRIT 25.8 % (42-54); LYMPHOCYTES % (AUTO) 15.7 % (21.0-51.0); MEAN CORPUSCULAR HEMOGLOBIN 29.2 pg (27.0-33.0); MEAN CORPUSCULAR HGB CONC 32.9 g/dL (32.0-36.0); MEAN CORPUSCULAR VOLUME 88.7 fL (79-99); MONOCYTES % (AUTO) 10.8 % (3.0-13.0); NEUTROPHILS % (AUTO) 63.9 % (40.0-77.0); NUCLEATED RED BLOOD CELLS 0.4 % (0.0-0.19); PLATELET COUNT (AUTO) 220 K/uL (130-400); RED BLOOD CELL COUNT(AUTO) 2.91 MIL/uL (4.50-6.20); RED CELL DISTRIBUTION WIDTH 16.9 % (11.0-15.5); WHITE BLOOD COUNT (AUTO) 10.7 K/uL (4.8-10.8)
[2019-10-16 06:08] LABS: CREATININE 6.2 mg/dL (0.5-1.5); MAGNESIUM 1.6 mg/dL (1.80-2.40); POTASSIUM 3.4 mmol/L (3.5-5.1)
[2019-10-16 08:00] VITALS: BP 179/67
[2019-10-16] MEDS ORDERED: MAGNESIUM 2GM PREMIX 50ML 50 ML IV SCH (08:15)
[2019-10-16] MEDS ORDERED: POTASSIUM CHLORIDE 10 MEQ/TAB.SA PO SCH (08:15)
--- NOTE | 2019-10-16 08:55 | NUR ---
patient signed the ama form at this time.
[2019-10-16] MEDS ORDERED: MAGNESIUM OXIDE 400 MG TABLET PO SCH (09:15)
[2019-10-16] MEDS ORDERED: Calcium Acetate PO (12:37)
[2019-10-16] MEDS ORDERED: SODI650T PO ×2 (12:37→20:14)
[2019-10-16] MEDS ORDERED: AMLO2.5T2 PO (12:37)
[2019-10-16] MEDS: FAMOTIDINE 20MG TAB 20 MG TAB PO SCH (13:03)
[2019-10-16] MEDS: SODIUM BICARBONATE 650 MG TAB PO SCH (13:03)
[2019-10-16] MEDS: CALCIUM ACETATE 667 MG CAPSULE PO SCH (13:04)
[2019-10-16] MEDS: AMLODIPINE BESYLATE 2.5 MG TAB PO SCH (13:04)
[2019-10-16] MEDS: EPOETIN ALFA 10,000 UNIT/ML VIAL SQ SCH (13:05)
[2019-10-16] MEDS ORDERED: CALC667C10 PO (20:14)
[2019-10-16] MEDS ORDERED: AMLO-257 PO (20:14)
== END 2019-10-16 14:30 | disposition home or self-care (01) | DRG 854 ==
LOC: EDH 14:31 → EDHIP 19:45 → 2AH 22:34 → 3BH 10-04 18:23 → 3CH 10-10 06:25
PROVIDERS: ADMIT Internal Medicine; ATTEND Internal Medicine
PROC: 0DQ94ZZ Repair Duodenum, Percutaneous Endoscopic Approach (ICD-10-PCS; 2019-10-07)
PROC: 0FT44ZZ Resection of Gallbladder, Percutaneous Endoscopic Approach (ICD-10-PCS; principal; 2019-10-07 11:00)
PROC: 30233N1 Transfusion of Nonautologous Red Blood Cells into Peripheral Vein, Percutaneous Approach (ICD-10-PCS; 2019-10-10)
DX: A41.9 Sepsis, unspecified organism (principal); K81.0 Acute cholecystitis; N17.9 Acute kidney failure, unspecified; I12.0 Hypertensive chronic kidney disease with stage 5 chronic kidney disease or end stage renal disease; N18.5 Chronic kidney disease, stage 5; S36.430A Laceration of duodenum, initial encounter; E11.22 Type 2 diabetes mellitus with diabetic chronic kidney disease; E83.39 Other disorders of phosphorus metabolism; K66.0 Peritoneal adhesions (postprocedural) (postinfection); S30.1XXA Contusion of abdominal wall, initial encounter; Z79.4 Long term (current) use of insulin; R53.81 Other malaise; E11.21 Type 2 diabetes mellitus with diabetic nephropathy; D63.8 Anemia in other chronic diseases classified elsewhere; X58.XXXA Exposure to other specified factors, initial encounter; Y93.89 Activity, other specified; Y92.89 Other specified places as the place of occurrence of the external cause; Y99.8 Other external cause status
CPT/HCPCS: 36415; 71045; 71046; 71250; 74021; 74176; 74181; 76705; 78227; 80048; 80053; 80074; 80076; 81001; 82150; 82306; 82570; 82728; 82948; 83540; 83550; 83605; 83690; 83735; 83935; 84100; 84145; 84484; 84550; 85014; 85018; 85025; 85027; 85610; 85730; 86850; 86900; 86901; 86922; 87040; 87088; 87804; 88304; 93005; 97039; 99291; A4344; A9537; G0378; J0330; J0360; J0696; J0885; J1100; J1170; J1756; J1815; J1940; J2001; J2250; J2270; J2405; J2543; J2704; J2710; J3010; J3490; J7030; J7040; J7120; P9016

== ENCOUNTER 2020-08-06 11:30 | Inpatient (IN) | payer MEDICARE ==
[~2020-08-06] VITALS: Ht 172.7 cm; Wt 84.2 kg
[~2020-08-06 11:30] MED LIST: AMLO-257 PO; CALC667C10 PO; SODI650T PO
[2020-08-06 12:06] LABS: BASOPHILS % (AUTO) 0.4 % (0.0-5.0); LYMPHOCYTES % (AUTO) 12.3 % (21.0-51.0); MEAN CORPUSCULAR VOLUME 93.7 fL (79-99); MONOCYTES % (AUTO) 6.8 % (3.0-13.0); NEUTROPHILS % (AUTO) 74.2 % (40.0-77.0); PLATELET COUNT (AUTO) 90 K/uL (130-400); RED BLOOD CELL COUNT(AUTO) 2.07 MIL/uL (4.50-6.20); RED CELL DISTRIBUTION WIDTH 14.6 % (11.0-15.5)
[2020-08-06 12:11] LABS: HEMATOCRIT 19.4 % (42-54)
[2020-08-06 12:28] LABS: ALBUMIN 3.7 g/dL (3.5-5.0); BILIRUBIN,TOTAL 0.4 mg/dL (0.2-1.0); CREATININE 7.1 mg/dL (0.5-1.5); POTASSIUM 5.5 mmol/L (3.5-5.1); TOTAL PROTEIN, SERUM 6.6 g/dL (6.0-8.3)
[2020-08-06] MEDS ORDERED: 0.9% NACL 250ML 250 ML IV ONE (15:24)
[2020-08-06] MEDS ORDERED: ONDANSETRON 4MG INJ IV PRN (16:00)
[2020-08-06] MEDS ORDERED: ACETAMINOPHEN 325 MG TAB PO PRN ×2 (16:00)
[2020-08-06] MEDS ORDERED: LACTULOSE 20 GM/30 ML UDCUP PO PRN (16:00)
[2020-08-06] MEDS ORDERED: KAYEXALATE 15GM/60ML PO SCH (16:15)
[2020-08-06] MEDS: INSULIN HUMULIN R 100 UNIT/ML 3ML SQ SCH ×2 (16:30→20:17)
[2020-08-06 18:30] VITALS: BP 142/57
[2020-08-06] MEDS ORDERED: METO25TA6 PO (18:41)
[2020-08-06] MEDS ORDERED: FURO40TA5 PO (18:44)
[2020-08-06] MEDS ORDERED: ASPI-1197 PO (18:44)
[2020-08-06] MEDS ORDERED: AMLO-258 PO (18:44)
[2020-08-06] MEDS ORDERED: TAMS-1 PO (18:44)
[2020-08-06] MEDS ORDERED: LEVO50CA4 PO (18:44)
[2020-08-06] MEDS ORDERED: FOLI0.4T6 PO (18:44)
[2020-08-06] MEDS ORDERED: MECO10005 PO (18:46)
[2020-08-06] MEDS ORDERED: FOLI0.8T22 PO (18:46)
[2020-08-06 19:15] VITALS: BP 152/59
[2020-08-06] MEDS: PANTOPRAZOLE 40 MG/VIAL IVP SCH (20:53)
[2020-08-06 23:49] VITALS: BP 143/53
[2020-08-07 04:00] VITALS: BP 146/60
[2020-08-07] MEDS ORDERED: LEVOTHYROXINE 50 MCG TABLET ONE (05:22)
[2020-08-07] MEDS ORDERED: AMLODIPINE 5 MG TAB ONE (05:22)
[2020-08-07 06:13] LABS: BASOPHILS % (AUTO) 0.4 % (0.0-5.0); EOSINOPHILS % (AUTO) 5.9 % (0.0-8.0); HEMATOCRIT 21.1 % (42-54); LYMPHOCYTES % (AUTO) 19.7 % (21.0-51.0); MEAN CORPUSCULAR HEMOGLOBIN 30.2 pg (27.0-33.0); MEAN CORPUSCULAR HGB CONC 32.2 g/dL (32.0-36.0); MEAN CORPUSCULAR VOLUME 93.8 fL (79-99); MONOCYTES % (AUTO) 9.9 % (3.0-13.0); NEUTROPHILS % (AUTO) 63.8 % (40.0-77.0); PLATELET COUNT (AUTO) 71 K/uL (130-400); RED BLOOD CELL COUNT(AUTO) 2.25 MIL/uL (4.50-6.20); RED CELL DISTRIBUTION WIDTH 14.2 % (11.0-15.5)
[2020-08-07 06:30] LABS: % IRON SATURATION 28.5 % (30-44)
[2020-08-07] MEDS ORDERED: LEVOTHYROXINE 50 MCG TABLET PO SCH (06:30)
[2020-08-07 06:36] LABS: HEMOGLOBIN A1C 5.3 % (4.0-6.0)
[2020-08-07] MEDS: INSULIN HUMULIN R 100 UNIT/ML 3ML SQ SCH ×2 (06:42→11:30)
[2020-08-07 06:55] LABS: CREATININE 7.2 mg/dL (0.5-1.5); POTASSIUM 4.8 mmol/L (3.5-5.1); THYROID STIMULATING HORMONE 8.19 uIU/mL (0.36-3.74); URIC ACID 9.6 mg/dL (2.6-7.2)
[2020-08-07 08:00] VITALS: BP 151/58
[2020-08-07] MEDS ORDERED: AMLODIPINE 5 MG TAB PO SCH (08:00)
[2020-08-07] MEDS ORDERED: FOLIC ACID 1 MG TABLET PO SCH (09:00)
[2020-08-07] MEDS ORDERED: METOPROLOL TARTRATE 25 MG TAB PO SCH (09:00)
[2020-08-07] MEDS ORDERED: ASPIRIN 81MG CHEW TAB PO SCH (09:00)
[2020-08-07] MEDS ORDERED: CYANOCOBALAMIN (VITAMIN B-12) 1,000 MCG TABLET PO SCH (09:00)
[2020-08-07] MEDS ORDERED: TAMSULOSIN HCL 0.4 MG CAP.ER.24H PO SCH (09:00)
[2020-08-07] MEDS ORDERED: FUROSEMIDE 40 MG TABLET PO SCH (09:00)
[2020-08-07] MEDS ORDERED: Vitamin B Complex/Vit C/Folic Acid PO SCH (09:00)
[2020-08-07] MEDS ORDERED: CITRIC ACID/SODIUM CITRATE 30 ML UDCUP PO SCH (09:00)
[2020-08-07] MEDS: PANTOPRAZOLE 40 MG/VIAL IVP SCH (10:43)
[2020-08-07] MEDS ORDERED: FUROSEMIDE 20MG VIAL IV SCH (11:30)
[2020-08-07 11:53] LABS: PROTEIN,URINE RANDOM 175.8 mg/dL (0-11.9)
[2020-08-07 11:57] VITALS: BP 152/78
[2020-08-07] MEDS ORDERED: EPOETIN ALFA-EPBX (ESRD) 10,000 UNIT/ML VIAL SQ SCH (12:00)
== END 2020-08-07 16:15 | disposition left against medical advice (07) | DRG 683 ==
LOC: EDH 11:30 → EDHIP 15:52 → 3CH 17:35
PROVIDERS: ADMIT Internal Medicine; ATTEND Internal Medicine
PROC: 30233N1 Transfusion of Nonautologous Red Blood Cells into Peripheral Vein, Percutaneous Approach (ICD-10-PCS; principal; 2020-08-06)
DX: N17.9 Acute kidney failure, unspecified (principal); I12.0 Hypertensive chronic kidney disease with stage 5 chronic kidney disease or end stage renal disease; N18.5 Chronic kidney disease, stage 5; E87.5 Hyperkalemia; Z20.822 Contact with and (suspected) exposure to COVID-19; M79.89 Other specified soft tissue disorders; E11.22 Type 2 diabetes mellitus with diabetic chronic kidney disease; D63.8 Anemia in other chronic diseases classified elsewhere; Z53.29 Procedure and treatment not carried out because of patient's decision for other reasons; I95.9 Hypotension, unspecified; Z90.49 Acquired absence of other specified parts of digestive tract; Z79.899 Other long term (current) drug therapy; Z79.82 Long term (current) use of aspirin
CPT/HCPCS: 36415; 36430; 71045; 80048; 80053; 82570; 82948; 83036; 83540; 83550; 83880; 84156; 84300; 84443; 84550; 85025; 85045; 86850; 86900; 86901; 86923; 87426; 93005; 93970; C9113; G0378; J1940; J7050; P9016

== ENCOUNTER 2023-10-07 18:23 | Emergency (ER) | payer OTHER, MEDICARE ==
[~2023-10-07] VITALS: Ht 160 cm; Wt 81.6 kg
[2023-10-07 18:23] VITALS: BP 172/63; PULSE 69; RESP 18
[~2023-10-07 18:23] MED LIST changes: -AMLO-257 PO; +AMLO-258 PO; +ASPI-1197 PO; -CALC667C10 PO; +FOLI0.4T6 PO; +FOLI0.8T22 PO; +FURO40TA5 PO; +LEVO50CA4 PO; +MECO10005 PO; +METO25TA6 PO; -SODI650T PO; +TAMS-1 PO
[2023-10-07] MEDS ORDERED: MELO-108 PO (21:58)
== END 2023-10-07 22:04 | disposition home or self-care (01) ==
LOC: EDH 18:23
DX: S66.812A Strain of other specified muscles, fascia and tendons at wrist and hand level, left hand, initial encounter (principal); S56.812A Strain of other muscles, fascia and tendons at forearm level, left arm, initial encounter; W18.39XA Other fall on same level, initial encounter; Y93.89 Activity, other specified; Y92.89 Other specified places as the place of occurrence of the external cause; Y99.8 Other external cause status
CPT/HCPCS: 73060; 73090; 73110

== ENCOUNTER 2024-01-11 10:52 | Emergency (ER) | payer OTHER, MEDICARE ==
[~2024-01-11] VITALS: Ht 167.6 cm; Wt 81.6 kg
[~2024-01-11 10:52] MED LIST changes: +MELO-108 PO
[2024-01-11 11:04] VITALS: BP 109/52; PULSE 74; RESP 18; O2SAT 99
[2024-01-11 11:19] LABS: BASOPHILS # (AUTO) 0.04 K/uL (0.00-0.20); BASOPHILS % (AUTO) 0.7 % (0.0-5.0); EOSINOPHILS # (AUTO) 0.16 K/uL (0.00-0.70); EOSINOPHILS % (AUTO) 2.8 % (0.0-8.0); HEMATOCRIT 32.5 % (42-54); IMMATURE GRANULOCYTE ABSOLUTE 0.03 K/uL (0-1); LYMPHOCYTES # (AUTO) 1.2 K/uL (1.0-4.8); LYMPHOCYTES % (AUTO) 20.1 % (21.0-51.0); MEAN CORPUSCULAR HEMOGLOBIN 33.6 pg (27.0-33.0); MEAN CORPUSCULAR HGB CONC 34.8 g/dL (32.0-36.0); MEAN CORPUSCULAR VOLUME 96.7 fL (79-99); MONOCYTES # (AUTO) 0.6 K/uL (0.1-1.0); MONOCYTES % (AUTO) 11.1 % (3.0-13.0); NEUTROPHILS # (AUTO) 3.7 K/uL (1.8-7.7); NEUTROPHILS % (AUTO) 64.8 % (40.0-77.0); PLATELET COUNT (AUTO) 106 K/uL (130-400); RED BLOOD CELL COUNT(AUTO) 3.36 MIL/uL (4.50-6.20); RED CELL DISTRIBUTION WIDTH 15.1 % (11.0-15.5); WHITE BLOOD COUNT (AUTO) 5.8 K/uL (4.8-10.8)
[2024-01-11 11:27] LABS: INR 1.01 (0.85-1.15); PROTHROMBIN TIME 10.9 SEC (9.6-11.6)
[2024-01-11 11:28] LABS: PARTIAL THROMBOPLASTIN TIME 25.5 SEC (26.3-35.5)
[2024-01-11 11:29] LABS: CREATININE 6.6 mg/dL (0.5-1.3); POTASSIUM 3.9 mmol/L (3.5-5.1)
[2024-01-11 11:34] LABS: B-TYPE NATRIURETIC PEPTIDE 179 pg/mL (0-100)
[2024-01-11 11:34] LABS: SARS-CoV-2, RNA, NAAT POSITIVE SARS CoV-2 (NEGATIVE)
[2024-01-11 11:35] LABS: RAPID GROUP A STREP negative (NEGATIVE)
[2024-01-11 11:36] LABS: ALBUMIN 3.7 g/dL (3.5-5.0); BILIRUBIN,TOTAL 0.8 mg/dL (0.2-1.0); TOTAL PROTEIN, SERUM 7.3 g/dL (6.0-8.3)
[2024-01-11 11:45] LABS: INFLUENZA TYPE A Negative For Type A (NEGATIVE); INFLUENZA TYPE B Negative For Type B (NEGATIVE)
[2024-01-11] MEDS: ONDANSETRON 4MG INJ IVP ONE (11:53)
[2024-01-11] MEDS ORDERED: AZIT250T9 PO (11:53)
[2024-01-11] MEDS ORDERED: ONDA-243 PO (11:53)
== END 2024-01-11 12:18 | disposition home or self-care (01) ==
LOC: EDH 10:52
DX: U07.1 COVID-19 (principal); E11.22 Type 2 diabetes mellitus with diabetic chronic kidney disease; I12.0 Hypertensive chronic kidney disease with stage 5 chronic kidney disease or end stage renal disease; N18.6 End stage renal disease; Z99.2 Dependence on renal dialysis; Z98.890 Other specified postprocedural states; Z79.84 Long term (current) use of oral hypoglycemic drugs; Z79.899 Other long term (current) drug therapy; Z79.82 Long term (current) use of aspirin
CPT/HCPCS: 99285; 96374; 71045; 87635; 84484; 80053; 83880; 85025; 85610; 85730; 87880; 87804 ×2; 36415; 93005; J2405